=== PATIENT | female | born 1990 | race Caucasian/White ===

== ENCOUNTER 2024-09-08 09:37 | Emergency (ER) | payer OTHER, SELFPAY ==
[2024-09-08 09:57] VITALS: BP 128/89
[2024-09-08 10:00] VITALS: BP 125/87
--- NOTE | 2024-09-08 10:05 | ED.GENMED ---
History of Present Illness
General
Chief Complaint: Abdominal Symptoms
Time Seen by Provider: 09/08/24 09:52
History of Present Illness
History of Present Illness:
34-year-old female history of previous appendectomy presenting with right lower quadrant abdominal pain starting last night. Patient states that it feels better with standing up or walking around, worse with laying flat. Patient denies nausea,
vomiting, diarrhea, vaginal discharge, dysuria or hematuria. Patient states that it radiates in her upper abdomen. Patient denies flank pain or history of kidney stones. LMP 3 weeks ago.
Phy Exam
Physical Exam
Physical Exam:
General: Alert, no acute distress
Head: NCAT
Eyes: clear conjunctiva
Neck: supple
Cardiac: regular rate and rhythm, no murmur
Lungs: clear to auscultation bilaterally. No wheezes, rales, or rhonchi. Speaking full unlabored sentences. No respiratory distress.
Abdomen: soft, nondistended. RLQ tenderness. No rebound or guarding.
MSK: no lower extremity edema bilaterally. No deformity
Skin: warm, dry
Neuro: Alert and oriented x3. no focal deficits
Course
Orders/Labs/Results
Orders:
Orders
09/08/24 10:04
, Urine Qualitative Screen [HCG, Urine Qualitative Screen] Urgent
Date Specimen was Collected: 09/08/24
Time Specimen was Collected: 10:07
UA Reflex to Culture [Urinalysis Reflex To Culture] Urgent
Date Specimen was Collected: 09/08/24
Time Specimen was Collected: 10:07
Ketorolac [Toradol] 15 mg IV NOW STA
Test Result ONCE
Transvaginal US [US Pelvis W Transvag Combined] Urgent
Comment:
Reason For Exam: rlq tenderness
09/08/24 10:07
Basic Metabolic Panel Urgent
CBC/With Diff [Complete Blood Count/With Diff] Urgent
Lipase Urgent
Abnormal Lab Results
09/08/24
10:07
WBC 3.8 L 10^3/uL
(4.8-10.8)
RBC 3.79 L 10^6/uL
(4.20-5.40)
Hgb 11.2 L g/dL
(12.0-16.0)
Hct 34.8 L %
(37.0-47.0)
MCHC 32.2 L g/dL
(33.0-37.0)
RDW 15.4 H %
(11.5-14.5)
Absolute Lymphs (auto) 1.0 L 10^3/uL
(1.2-3.4)
09/08/24 10:07
09/08/24 10:07
Vital Signs
Initial and Last Documented VS:
Initial Vital Signs
Temp Pulse Resp Pulse Ox
98.0 F 93 16 98
09/08/24 09:41 09/08/24 09:41 09/08/24 09:41 09/08/24 09:41
Last Documented Vital Signs
Temp Pulse Resp BP Pulse Ox
98.0 F 76 17 116/82 99
09/08/24 09:41 09/08/24 11:30 09/08/24 11:30 09/08/24 11:00 09/08/24 11:30
MDM/Problems Addressed
Differential Diagnosis Includes:
ovarian torsion, ovarian cyst, UTI, kidney stone. Pt had previous appendectomy, low suspicion for appendicitis
MDM/Problems Addressed:
34-year-old female history of previous appendectomy presenting with right lower quadrant abdominal pain starting last night with no associated symptoms. LMP 3 weeks ago. Will obtain labs, urine, transvaginal ultrasound
On reevaluation, patient reports mild improvement in symptoms. Patient is requesting discharge home, states that she needs to pick her child up from school. Discussed labs and ultrasound results with patient, unremarkable. Recommended to stay
pending urine results rule out UTI, consider kidney stone if blood present, possible CT abdomen/pelvis given normal transvaginal ultrasound. Patient states that she needs to leave now requesting discharge. Patient agreeable to sign out AGAINST
MEDICAL ADVICE. Patient expressed verbal understanding possibly missing a urinary tract infection, kidney stone, colitis, abscess. Discussed return precautions. Advised take Tylenol/Motrin as needed for pain. Advised follow-up with primary care
doctor soon as possible. Patient expressed verbal understanding.
*Critical Care Note
Total Time (30-74mins, 75-104mins- exclusive of procedures): Not Applicable
ED Attending Note
-
Portions of this chart may have been created with voice recognition software.� Occasional wrong word or��sound alike� substitutions may have occurred due to the inherent limitations of voice recognition software.
Discharge Plan
Departure
Patient Disposition: Against Medical Advice
Date of Disposition: 09/08/24
Time of Disposition: 15:00
Discharge Problem:
Abdominal pain, right lower quadrant
Instructions: Abdominal Pain
Referrals:
Mallory Schuster MD [Family Provider] -
Activity Restrictions/Additional Instructions:
Take tylenol 975mg every 6 hours and/or ibuprofen 800mg every 8 hours with food as needed for pain
Follow up with primary care doctor in 1-2 days
Return to the emergency department for fever, burning with urination, persistent vomiting or new/worsening symptoms
Interventions
Interventions:
*Risk Screen - Suicide Last Done: 09/08/24 09:55
*General Assessment Last Done: 09/08/24 09:55
*Neglect/Abuse Screening Last Done: 09/08/24 09:55
ED- Fall Risk Assessment Last Done: 09/08/24 09:55
*ED COVID-19 Vaccine History Last Done: 09/08/24 09:55
HF-Nnmqfy-Xlgzkhnhdp Assessment Last Done: 09/08/24 09:55
Discharge Date and Time
Print Language: Ukranian
[2024-09-08] MEDS: TORADOL 15 MG IV (10:16)
[2024-09-08 10:25] LABS: % Basophils 0.8 % (0-2); % Eosinophils 2.1 % (0-6); % Immature Granulocytes 0.3 % (0-0.5); % Lymphocytes 27.2 % (20.5-51.1); % Monocytes 7.9 % (1.7-9.3); % Neutrophils 61.7 % (42.2-75.2); Absolute Eosinophils 0.1 10^3/uL (0-0.7); Absolute Monocytes 0.3 10^3/uL (0.1-0.6); Absolute Neutrophils 2.4 10^3/uL (1.4-6.5); Hematocrit 34.8 % (37.0-47.0); Hemoglobin 11.2 g/dL (12.0-16.0); Mean Corp Hgb Conc. 32.2 g/dL (33.0-37.0); Mean Corpuscular Hgb 29.6 pg (27.0-31.0); Mean Corpuscular Volume 91.8 fL (81.0-99.0); Mean Platelet Volume 10.2 fL (7.4-10.4); Nucleated Red Blood Cells % 0 %; Platelet Count 318 10^3/uL (130-400); Red Blood Cell Count 3.79 10^6/uL (4.20-5.40); Red Cell Dist. Width 15.4 % (11.5-14.5); White Blood Cell Count 3.8 10^3/uL (4.8-10.8)
[2024-09-08 10:53] LABS: Blood Urea Nitrogen 10 mg/dl (7-17); Calcium 9.2 mg/dl (8.4-10.2); Carbon Dioxide 22 mmol/L (22-30); Chloride 104 mmol/L (98-107); Glucose 98 mg/dl (70-99); Lipase 62 U/L (23-300); Sodium 141 mmol/L (135-145); eGFR > 60.00
[2024-09-08 11:00] VITALS: BP 116/82
[2024-09-08 15:00] VITALS: BP 120/80
[2024-09-08 15:03] LABS: Urine Albumin Negative (Neg - Trace); Urine Bilirubin Negative (Negative); Urine Character Clear (Clear); Urine Color Yellow; Urine Glucose Negative (Negative); Urine Ketone Negative (Negative); Urine Leukocyte Negative (Negative); Urine Nitrite Negative (Negative); Urine Occult Blood Negative (Negative); Urine Urobilinogen Negative (Neg - 1+)
[2024-09-08 15:09] LABS: HCG, Urine Qualitative Screen Negative
== END 2024-09-08 15:09 | disposition left against medical advice (07) ==
LOC: EMR 09:37
PROVIDERS: EMERGENCY PHYSICIAN Emergency Medicine; FAMILY PHYSICIAN Internal Medicine
DX: R10.31 Right lower quadrant pain (principal); Z90.49 Acquired absence of other specified parts of digestive tract
CPT/HCPCS: 99284; 96374; 76830; 76856; 80048; 81003; 81025; 83690; 85025

== ENCOUNTER 2025-03-15 11:16 | Emergency (ER) | payer OTHER, SELFPAY ==
[2025-03-15 11:21] VITALS: BP 135/89
--- NOTE | 2025-03-15 15:58 | DOWNTIME ---
There was a [employer] Downtime on 03/15/2025 from 1230 to 03/15/2025 at 1550. Downtime documentation of patient's care, including medication administrations, has been reconciled in the electronic record per guidelines. Refer to the
patient's paper chart under the miscellaneous tab to see printed paper medication records and downtime forms.
--- NOTE | 2025-03-15 16:41 | ED.GENMED ---
History of Present Illness
General
Chief Complaint: Skin Surface Trauma
Source: patient
Exam Limitations: none
Time Seen by Provider: 03/15/25 12:51
History of Present Illness
History of Present Illness:
34yo [id number]-vuncroyq female presenting for evaluation of a left palmar laceration. Patient was using a knife to cut an avocado when she slipped and cut her palm. Incident occurred around 10 AM this morning. No paresthesias. Unknown last Tdap.
Phy Exam
General Physical Exam
General Presentation: well appearing and no apparent distress
General Skin: warm and dry
General Habitus: normal
General Mental: alert
ENT Exam
ENT Exam: normocephalic
Neurological Exam
Neurological Exam: alert
Skin Exam
Skin Exam: normal color, warm/dry and other (Approx 2.5cm mildly gaping laceration noted to the L palm. No visualized tendon. ROM of fingers are intact. 2+ radial pulse.)
Psychiatric Exam
Psychiatric Exam: normal mood/affect
Course
Orders/Labs/Results
Orders:
Orders
03/15/25 12:57
Acetaminophen [Tylenol] 1,000 mg PO NOW STA
Ibuprofen [Motrin] 600 mg PO NOW STA
CR Hand - Left Min 3 Views Urgent
Comment:
Reason For Exam: laceration
Vital Signs
Initial and Last Documented VS:
Initial Vital Signs
Temp Pulse Resp BP Pulse Ox
98.1 F 78 16 135/89 100
03/15/25 11:21 03/15/25 11:21 03/15/25 11:21 03/15/25 11:21 03/15/25 11:21
Last Documented Vital Signs
Temp Pulse Resp BP Pulse Ox
98.1 F 78 16 135/89 100
03/15/25 11:21 03/15/25 11:21 03/15/25 11:21 03/15/25 11:21 03/15/25 11:21
Procedures
Laceration Closure
Left Palmar Hand:
Status of Wound: clean
Size of Wound in cm: 2.5
Description of Wound Edges: sharp
Preparation: cleaned with saline
Anesthesia: 1% Lidocaine with epi
Wound exploration: explored to base- no FB
Type of Closure: single layer closure
Skin Closure Material: 5-0 nylon
Number of sutures: 3
MDM/Problems Addressed
Differential Diagnosis Includes:
34yoF here with a laceration to her L palm. 2.5cm mildly gaping laceration noted. ROM of fingers intact. No clinical evidence of tendon injury. Laceration was irrigated and repaired as above. Hand x-rays obtained which are normal per discussion with
radiology. Recommended tetanus vaccine which patient declines stating she prefers to check her vaccination records when she returns home. Patient advised to have sutures removed in 10-14 days and return to the ED sooner with any signs of infection.
Patient seen during [facility] downtime and hand written discharge papers provided.
*Critical Care Note
Total Time (30-74mins, 75-104mins- exclusive of procedures): Not Applicable
ED Attending Note
-
Portions of this chart may have been created with voice recognition software.� Occasional wrong word or��sound alike� substitutions may have occurred due to the inherent limitations of voice recognition software.
Discharge Plan
Departure
Patient Disposition: Home (Routine Discharge)
Date of Disposition: 03/15/25
Time of Disposition: 15:58
Patient with high blood pressure during this ER visit?: No
Discharge Problem:
Laceration of left palm
Referrals:
Mallory Schuster MD [Family Provider]
Interventions
Interventions:
*Risk Screen - Suicide Last Done: 03/15/25 11:21
*General Assessment Last Done: 03/15/25 11:21
*Neglect/Abuse Screening Last Done: 03/15/25 11:21
*Nursing Disposition Last Done: 03/15/25 15:59
ED-Skin Assessment Last Done: 03/15/25 11:53
Discharge Date and Time
Discharge Date/Time: 03/15/25 15:59
Print Language: Ukranian
== END 2025-03-15 15:59 | disposition home or self-care (01) ==
LOC: EMR 11:16
PROVIDERS: EMERGENCY PHYSICIAN Emergency Medicine; FAMILY PHYSICIAN Internal Medicine
DX: S61.412A Laceration without foreign body of left hand, initial encounter (principal); W26.0XXA Contact with knife, initial encounter
CPT/HCPCS: 12001; 99283; 73130

== ENCOUNTER 2025-03-28 16:27 | Emergency (ER) | payer OTHER, SELFPAY ==
[2025-03-28 16:29] VITALS: BP 120/83
--- NOTE | 2025-03-28 17:27 | ED.SKININJ ---
HPI-Injury
General
Chief Complaint: Wound Check/Suture Removal
Source: patient
Exam Limitations: none
Time Seen by Provider: 03/28/25 17:21
History of Present Illness-Injury
Initial Injury comments:
Note:
CHIEF COMPLAINT(S)
Removal of stitches from a laceration on the right hand.
HISTORY OF PRESENT ILLNESS
The patient is a 34-year-old female who presented for the removal of stitches from a laceration on her right hand. Two weeks prior, the patient sustained the injury while attempting to remove the pit from an avocado, resulting in a cut that required
suturing. Since then, the patient reports satisfactory healing with no numbness or tingling in her fingers, and she is able to bend her fingers without difficulty. The patient stated, .
PHYSICAL EXAM
- Hand: . The wound appears to have healed well. No erythema
- Neurological: No numbness or tingling reported in the affected hand.
Nursing notes reviewed and vital signs reviewed.
PLAN
- Sutures successfully removed.
- The wound will continue to heal on its own; no additional intervention is necessary at this time.
Disposition:
SUMMARY OF ENCOUNTER
The patient, a 34-year-old female, was seen for the removal of stitches from a laceration on her right hand. The laceration occurred two weeks prior while attempting to remove the pit from an avocado, necessitating suturing. Upon examination, the
wound demonstrated satisfactory healing with no signs of infection and the patient had full range of motion in her fingers without numbness or tingling.
PLAN
Sutures were successfully removed during the visit. It was advised that the wound should continue to heal without any additional intervention necessary at this time.
PATIENT EDUCATION AND COUNSELING
The patient was advised to keep the wound clean and dry. She was also informed to return if needed and to follow-up with her doctor.
FOLLOW-UP INSTRUCTIONS
The patient was instructed to follow up with her doctor as needed.
Phy Exam
Physical Exam
Physical Exam:
as above
Course
Vital Signs
Initial and Last Documented VS:
Initial Vital Signs
Temp Pulse Resp BP Pulse Ox
98.7 F 96 16 120/83 99
03/28/25 16:29 03/28/25 16:29 03/28/25 16:29 03/28/25 16:29 03/28/25 16:29
Last Documented Vital Signs
Temp Pulse Resp BP Pulse Ox
98.7 F 96 16 120/83 99
03/28/25 16:29 03/28/25 16:29 03/28/25 16:29 03/28/25 16:29 03/28/25 16:29
*Critical Care Note
Total Time (30-74mins, 75-104mins- exclusive of procedures): Not Applicable
ED Attending Note
-
Portions of this chart may have been created with voice recognition software.� Occasional wrong word or��sound alike� substitutions may have occurred due to the inherent limitations of voice recognition software.
Discharge Plan
Departure
Patient Disposition: Home (Routine Discharge)
Date of Disposition: 03/28/25
Time of Disposition: 17:28
Patient with high blood pressure during this ER visit?: No
Discharge Problem:
Visit for suture removal
Instructions: Wound Care (DC)
Activity Restrictions/Additional Instructions:
Return if needed
Interventions
Interventions:
*Risk Screen - Suicide Last Done: 03/28/25 16:29
*Neglect/Abuse Screening Last Done: 03/28/25 16:29
*ED- Fall Risk Assessment Last Done: 03/28/25 16:29
Discharge Date and Time
Print Language: Ukranian
== END 2025-03-28 17:36 | disposition home or self-care (01) ==
LOC: EMR 16:27
PROVIDERS: EMERGENCY PHYSICIAN Emergency Medicine; FAMILY PHYSICIAN Internal Medicine
DX: Z48.02 Encounter for removal of sutures (principal)
CPT/HCPCS: 99281